=== PATIENT | female | born 1995 | race Caucasian/White ===

== ENCOUNTER 2022-11-02 16:12 | Emergency (ER) | payer BC ==
[~2022-11-02] VITALS: Ht 172.7 cm; Wt 61.4 kg
[2022-11-02] MEDS ORDERED: ACETAMINOPHEN 500 MG TAB PO ONE (17:55)
[2022-11-02 18:32] LABS: ALBUMIN 3.7 G/DL (3.2-5.2); ALKALINE PHOSPHATASE 81 U/L (46-116); ALT/SGPT 20 U/L (7.0-40); AST/SGOT 26 U/L (<34); BILIRUBIN,TOTAL 0.7 MG/DL (0.3-1.2); BLOOD UREA NITROGEN 17 MG/DL (9-23); CALCIUM LEVEL 8.5 MG/DL (8.5-10.1); CARBON DIOXIDE LEVEL 26 MMOL/L (20-31); CHLORIDE LEVEL 107 MMOL/L (98-107); CREATININE FOR GFR 0.77 MG/DL (0.55-1.30); GLOMERULAR FILTRATION RATE > 60.0 (>60); GLUCOSE, FASTING 95 MG/DL (60-100); POTASSIUM SERUM 3.9 MMOL/L (3.5-5.1); SODIUM LEVEL 139 MMOL/L (136-145); TOTAL PROTEIN 6.8 G/DL (5.7-8.2)
[2022-11-02 18:34] LABS: HEMATOCRIT 39.1 % (36.0-47.0); HEMOGLOBIN 13.1 g/dl (12.0-15.5); MEAN CORPUSCULAR HEMOGLOBIN 30.1 pg (27.0-33.0); MEAN CORPUSCULAR HGB CONC 33.5 g/dl (32.0-36.5); MEAN CORPUSCULAR VOLUME 89.9 fl (80.0-96.0); PLATELET COUNT, AUTOMATED 155 10^3/uL (150-450); RED BLOOD COUNT 4.35 10^6/uL (4.00-5.40); WHITE BLOOD COUNT 14.9 10^3/uL (4.0-10.0)
[2022-11-02] MEDS ORDERED: PROHANCE 279.3MG/ML 15ML VIAL As Ordered ONE (20:02)
[2022-11-02] MEDS ORDERED: levETIRAcetam INJection 500 MG in D5W MINI-BAG PLUS 100 ML IV ONE (21:00)
[2022-11-02] MEDS ORDERED: KEPP1TAB PO (21:20)
[2022-11-02] MEDS ORDERED: KEPP10002 PO (21:20)
[2022-11-02 22:17] VITALS: BP 98/54
[2022-11-02 22:31] LABS: AMPHETAMINES LEVEL URINE NEGATIVE (NEGATIVE); BARBITURATES URINE NEGATIVE (NEGATIVE); BENZODIAZEPINES URINE NEGATIVE (NEGATIVE); COCAINE METABOLITE URINE NEGATIVE (NEGATIVE); METHADONE URINE NEGATIVE (NEGATIVE); OPIATES URINE NEGATIVE (NEGATIVE)
[2022-11-02 22:32] LABS: PHENCYCLIDINE URINE NEGATIVE (NEGATIVE)
[2022-11-02 22:45] LABS: CANNABINOIDS URINE POSITIVE (NEGATIVE)
== END 2022-11-02 22:38 | disposition home or self-care (01) ==
LOC: M ED 16:12
DX: R56.9 Unspecified convulsions (principal); Q28.3 Other malformations of cerebral vessels; R51.9 Headache, unspecified; R00.1 Bradycardia, unspecified; F12.10 Cannabis abuse, uncomplicated; Z79.899 Other long term (current) drug therapy
CPT/HCPCS: 70450; 70553; 80053; 80307; 84702; 85027; 93005; 96365; 99285; A9576; J1953

== ENCOUNTER → 2022-11-06 | Outpatient (CLI) | payer BC ==
[~2022-11-06] MED LIST: KEPP10002 PO; KEPP1TAB PO
[2022-11-06 17:38] LABS: BASO # 0.1 10^3/uL (0.0-0.2); EOS # 0.7 10^3/uL (0.0-0.5); EOS % 10.2 % (0.0-3.0); HEMATOCRIT 40.8 % (36.0-47.0); HEMOGLOBIN 13.5 g/dl (12.0-15.5); LYMPH # 1.6 10^3/uL (1.5-5.0); LYMPH % 22.9 % (24.0-44.0); MEAN CORPUSCULAR HEMOGLOBIN 30.3 pg (27.0-33.0); MEAN CORPUSCULAR HGB CONC 33.1 g/dl (32.0-36.5); MEAN CORPUSCULAR VOLUME 91.7 fl (80.0-96.0); MONO # 0.6 10^3/uL (0.0-0.8); MONO % 7.7 % (2.0-8.0); NEUTROPHILS # 4.1 10^3/uL (1.5-8.5); NEUTROPHILS % 57.9 % (36.0-66.0); PLATELET COUNT, AUTOMATED 189 10^3/uL (150-450); RED BLOOD COUNT 4.45 10^6/uL (4.00-5.40); WHITE BLOOD COUNT 7.1 10^3/uL (4.0-10.0)
[2022-11-06 17:53] LABS: LIPASE 47 U/L (12-53)
[2022-11-06 17:55] LABS: ALBUMIN 3.8 G/DL (3.2-5.2); ALKALINE PHOSPHATASE 81 U/L (46-116); ALT/SGPT 24 U/L (7.0-40); AMYLASE 53 U/L (30-118); AST/SGOT 25 U/L (<34); BILIRUBIN,TOTAL 0.4 MG/DL (0.3-1.2); BLOOD UREA NITROGEN 15 MG/DL (9-23); CALCIUM LEVEL 8.8 MG/DL (8.5-10.1); CARBON DIOXIDE LEVEL 27 MMOL/L (20-31); CHLORIDE LEVEL 106 MMOL/L (98-107); CREATININE FOR GFR 0.85 MG/DL (0.55-1.30); FREE T4 1.15 NG/DL (0.89-1.76); GLOMERULAR FILTRATION RATE > 60.0 (>60); GLUCOSE, FASTING 77 MG/DL (60-100); POTASSIUM SERUM 4.5 MMOL/L (3.5-5.1); PTH INTACT 51.7 PG/ML (18.5-88.0); SODIUM LEVEL 139 MMOL/L (136-145); TOTAL PROTEIN 7.3 G/DL (5.7-8.2)
[2022-11-06 17:57] LABS: TOTAL 25(OH) VITAMIN D 26.9 NG/ML (20.0-100.0)
[2022-11-06 17:58] LABS: FOLATE 18.56 NG/ML (>5.4); VITAMIN B12 LEVEL 737 PG/ML (211-911)
[2022-11-06 18:07] LABS: INR 1.02; PROTHROMBIN TIME 13.6 SECONDS (12.5-14.5)
[2022-11-06 18:08] LABS: ERYTHROCYTE SEDIMENTATION RATE 30 mm/hr (0-20); PARTIAL THROMBOPLASTIN TIME 27.6 SECONDS (24.8-34.2)
[2022-11-11 02:06] LABS: VITAMIN B1 LEVEL WHOLE BLOOD 158.2 nmol/L (66.5-200.0)
== END ==
LOC: M PLALAB 15:57
PROVIDERS: ATTEND Nurse Practitioner Adult Health
DX: D69.2 Other nonthrombocytopenic purpura (principal); R63.4 Abnormal weight loss; D72.829 Elevated white blood cell count, unspecified; R51.9 Headache, unspecified; G31.84 Mild cognitive impairment of uncertain or unknown etiology

== ENCOUNTER → 2024-09-13 | Outpatient (CLI) | payer BC | LOC: M SOG 12:50 | PROVIDERS: ATTEND Orthopaedic Surgery | DX: M79.631 Pain in right forearm (principal) ==

== ENCOUNTER → 2025-02-11 | Outpatient (CLI) | payer BC, SELFPAY | LOC: M PLARAD 13:12 | PROVIDERS: ATTEND Neurological Surgery | DX: Q28.3 Other malformations of cerebral vessels (principal); Z98.890 Other specified postprocedural states; J32.8 Other chronic sinusitis; J01.00 Acute maxillary sinusitis, unspecified ==

== ENCOUNTER → 2025-02-25 | Outpatient (REF) | LOC: M LAB 15:02 | PROVIDERS: ATTEND Family Medicine | DX: Z02.1 Encounter for pre-employment examination (principal) ==